=== PATIENT | female | born 1975 | race Caucasian/White ===

== ENCOUNTER → 2016-10-11 | Outpatient (CLI) | payer OTHER ==
[~2016-10-11] VITALS: Ht 175.3 cm; Wt 74.8 kg
[~2016-10-11] MED LIST: BACLOFEN20 MG PO; BLACK COHOSH40 MG PO; CALCIUM500 MG PO; DICLOFENAC SODI75 MG PO; IBUPROFEN 200200 M1 PO; MEDROLDOSEPACK PO; NABUMETONE 500500 M1 PO
== END | disposition home or self-care (01) ==
LOC: GI 06:47
DX: Z12.11 Encounter for screening for malignant neoplasm of colon (principal); Z80.0 Family history of malignant neoplasm of digestive organs; Z98.890 Other specified postprocedural states
CPT/HCPCS: 62110; 62900